=== PATIENT | female | born 1975 | race Hispanic/Latino ===

== ENCOUNTER 2023-02-14 10:43 | Outpatient (CLI) | payer OTHER ==
[~2023-02-14 10:43] MED LIST: Iopamidol 300 61% 100 ML VIAL FS ONE
== END 2023-02-14 10:44 | disposition home or self-care (01) ==
LOC: CSHCT 10:43
PROVIDERS: ATTEND Family Medicine
DX: R10.31 Right lower quadrant pain (principal)
CPT/HCPCS: 74177